=== PATIENT | female | born 1980 | race Caucasian/White ===

== ENCOUNTER 2018-09-06 08:23 | Emergency (ER) | payer OTHER ==
[~2018-09-06] VITALS: Ht 170.2 cm; Wt 54.4 kg
[~2018-09-06 08:23] MED LIST: CLEOCIN HCL300 MG PO; IBUPROFEN600 MG PO; KETOROLAC TROME10 MG PO
== END 2018-09-06 10:16 | disposition home or self-care (01) ==
LOC: ED 08:23
DX: S00.03XA Contusion of scalp, initial encounter (principal); S50.12XA Contusion of left forearm, initial encounter; F17.200 Nicotine dependence, unspecified, uncomplicated; Z90.710 Acquired absence of both cervix and uterus; W20.8XXA Other cause of strike by thrown, projected or falling object, initial encounter
CPT/HCPCS: 73090; 99283

== ENCOUNTER 2019-10-12 05:45 | Emergency (ER) | payer OTHER ==
[~2019-10-12] VITALS: Ht 170.2 cm; Wt 54.4 kg
[2019-10-12] MEDS ORDERED: VENTOLIN HFA18 GM INH (05:59)
== END 2019-10-12 06:49 | disposition home or self-care (01) ==
LOC: ED 05:45
DX: S20.211A Contusion of right front wall of thorax, initial encounter (principal); X58.XXXA Exposure to other specified factors, initial encounter; F17.200 Nicotine dependence, unspecified, uncomplicated
CPT/HCPCS: 71101; 96372; 99284-25; J1885

== ENCOUNTER 2020-03-13 17:09 | Emergency (ER) | payer OTHER ==
[~2020-03-13] VITALS: Ht 170.2 cm; Wt 54.4 kg
[~2020-03-13 17:09] MED LIST changes: +VENTOLIN HFA18 GM INH
== END 2020-03-13 19:28 | disposition left against medical advice (07) ==
LOC: ED 17:09
DX: Z53.21 Procedure and treatment not carried out due to patient leaving prior to being seen by health care provider (principal)

== ENCOUNTER 2020-07-28 18:13 | Emergency (ER) | payer OTHER ==
[~2020-07-28] VITALS: Ht 170.2 cm; Wt 54.4 kg
[2020-07-28] MEDS ORDERED: FLUTICASONE-SA1 EAC4 INH (18:38)
[2020-07-28] MEDS ORDERED: MONTELUKAST SOD10 MG PO (18:39)
== END 2020-07-28 19:46 | disposition home or self-care (01) ==
LOC: ED 18:13
DX: T15.01XA Foreign body in cornea, right eye, initial encounter (principal); F17.200 Nicotine dependence, unspecified, uncomplicated; Z79.899 Other long term (current) drug therapy
CPT/HCPCS: 65222; 99283-25

== ENCOUNTER 2020-11-15 07:55 | Emergency (ER) | payer OTHER ==
[~2020-11-15] VITALS: Ht 170.2 cm; Wt 52.2 kg
[~2020-11-15 07:55] MED LIST changes: +FLUTICASONE-SA1 EAC4 INH; +MONTELUKAST SOD10 MG PO
--- OUTSIDE RECORDS SUMMARY | 2020-11-15 08:00 | XMS ---
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 Details: [facility] CRITERIA MET - ED - Positive COVID-19 Lab Result - [facility] PROVID[facility] There are no care providers on record at this time. Kelly has no Care Guidelines for this patient. E.D. VISIT COUNT (12 MO.) 3 [facility] TOTAL 3 NOTE: Visits indicate total known visits. 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
[2020-11-15] MEDS ORDERED: DICLOFENAC POTA50 MG PO (08:10)
== END 2020-11-15 09:36 | disposition home or self-care (01) ==
LOC: ED 07:55
DX: S29.012A Strain of muscle and tendon of back wall of thorax, initial encounter (principal); F17.200 Nicotine dependence, unspecified, uncomplicated; X58.XXXA Exposure to other specified factors, initial encounter; Y99.0 Civilian activity done for income or pay; Z86.16 Personal history of COVID-19
CPT/HCPCS: 71101; 99283-25

== ENCOUNTER 2021-10-24 09:27 | Emergency (ER) | payer OTHER ==
[~2021-10-24] VITALS: Ht 170.2 cm; Wt 52.2 kg
[~2021-10-24 09:27] MED LIST changes: +DICLOFENAC POTA50 MG PO
[2021-10-24] MEDS ORDERED: ADVAIR HFA 115-12 GM INH (09:40)
--- OUTSIDE RECORDS SUMMARY | 2021-10-25 00:50 | XMS ---
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 [place] VISIT COUNT (12 MO.) 2 [facility] TOTAL 2 NOTE: Visits indicate total known visits. ED/UCC VISIT TRACKING (12 MO.) 10/24/2021 09:28 [facility] [place] TYPE: Emergency COMPLAINT: - R KNEE/BACK INJURY 11/15/2020 07:58 [facility] [place] TYPE: Emergency COMPLAINT: - R SIDE RIB PAIN INJURY DIAGNOSES: - Civilian activity done for income or pay - Nicotine dependence, unspecified, uncomplicated - Strain of muscle and tendon of back wall of thorax, initial encounter - Exposure to other specified factors, initial encounter - Pleurodynia INPATIENT VISIT TRACKING (12 MO.) No inpatient visits to display in this time frame [id number]
== END 2021-10-24 10:46 | disposition home or self-care (01) ==
LOC: ED 09:27
DX: S83.92XA Sprain of unspecified site of left knee, initial encounter (principal); S39.012A Strain of muscle, fascia and tendon of lower back, initial encounter; F17.200 Nicotine dependence, unspecified, uncomplicated; Z79.51 Long term (current) use of inhaled steroids; X50.1XXA Overexertion from prolonged static or awkward postures, initial encounter; Y99.0 Civilian activity done for income or pay
CPT/HCPCS: 73560; 99283-25; A9270

== ENCOUNTER 2022-06-27 06:43 | Emergency (ER) | payer OTHER ==
[~2022-06-27] VITALS: Ht 170.2 cm; Wt 52.2 kg
[~2022-06-27 06:43] MED LIST changes: +ADVAIR HFA 115-12 GM INH
--- OUTSIDE RECORDS SUMMARY | 2022-06-27 06:46 | XMS ---
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 [place]hel[place] VISIT COUNT (12 MO.) 2 [facility] TOTAL 2 NOTE: Visits indicate total known visits. 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
[2022-06-27] MEDS ORDERED: LIDODERM1 EACH TOP (07:32)
[2022-06-27] MEDS ORDERED: NAPROSYN500 MG PO (07:32)
== END 2022-06-27 07:45 | disposition home or self-care (01) ==
LOC: ED 06:43
DX: S20.212A Contusion of left front wall of thorax, initial encounter (principal); W01.198A Fall on same level from slipping, tripping and stumbling with subsequent striking against other object, initial encounter; F17.200 Nicotine dependence, unspecified, uncomplicated
CPT/HCPCS: 71101